=== PATIENT | male | born 1960 | race Caucasian/White ===

== ENCOUNTER → 2021-03-07 | Emergency (ER) | payer SELFPAY ==
[~2021-03-07] VITALS: Ht 177.8 cm; Wt 100.0 kg
[~2021-03-07] MED LIST: HYDR-3965 PO; HYDROcodone/acetaminophen 5mg/325mg tablet PO ONE
[2021-03-07 10:51] VITALS: BP_SYST 83
== END | disposition home or self-care (01) ==
LOC: ER 10:34
DX: S92.315A Nondisplaced fracture of first metatarsal bone, left foot, initial encounter for closed fracture (principal); M79.675 Pain in left toe(s); Z88.5 Allergy status to narcotic agent; Z79.899 Other long term (current) drug therapy; X58.XXXA Exposure to other specified factors, initial encounter; Y93.89 Activity, other specified; Y92.89 Other specified places as the place of occurrence of the external cause; Y99.8 Other external cause status
CPT/HCPCS: 73630; 99283

== ENCOUNTER 2021-11-03 13:29 | Emergency (ER) | payer BC ==
[~2021-11-03] VITALS: Ht 175.3 cm; Wt 90.9 kg
[2021-11-03 13:33] VITALS: BP 144/85
== END 2021-11-03 17:11 | disposition home or self-care (01) ==
LOC: ER 13:29
DX: M25.561 Pain in right knee (principal); Z88.5 Allergy status to narcotic agent
CPT/HCPCS: 73564; 99283

== ENCOUNTER 2022-02-15 15:45 | Inpatient (IN) | payer BC ==
[~2022-02-15] VITALS: Ht 175.3 cm; Wt 90.0 kg
[2022-02-15 16:37] LABS: APTT 26 SECONDS (22-32)
[2022-02-15 16:38] LABS: ALANINE AMINOTRANSFERASE 22 U/L (12-78); ALBUMIN 3.8 G/DL (3.4-5.0); ALKALINE PHOSPHATASE 145 IU/L (46-116); ANION GAP 10 (8-16); ASPARTATE AMINO TRANSFERASE 20 U/L (10-37); BILIRUBIN,TOTAL 0.6 MG/DL (0.1-1.0); BLOOD UREA NITROGEN 14 MG/DL (7-18); BUN/CREATININE RATIO 15.7 (5.4-32.0); CALCIUM 8.5 MG/DL (8.5-10.1); CHLORIDE 105 MMOL/L (99-107); CREATININE 0.89 MG/DL (0.60-1.10); GLUCOSE 93 MG/DL (70-104); POTASSIUM 3.9 MMOL/L (3.5-5.1); SODIUM 140 MMOL/L (135-145); TOTAL PROTEIN 7.5 G/DL (6.4-8.2); eGFR 87 ML/MIN
[2022-02-15 16:43] LABS: BASOPHILS % (AUTO) 0.4 % (0-1); EOSINOPHILS # (AUTO) 0.2 X10'3 (0-0.9); EOSINOPHILS % (AUTO) 2.8 % (0-6); HEMATOCRIT 42.3 % (42.0-52.0); HEMOGLOBIN 14.8 g/dl (14.0-17.9); LYMPHOCYTES # (AUTO) 3.2 X10'3 (1.1-4.8); LYMPHOCYTES % (AUTO) 38.5 % (21-51); MEAN CORPUSCULAR HEMOGLOBIN 30.5 PG (27.0-31.0); MEAN CORPUSCULAR VOLUME 87.3 FL (78-98); MEAN PLATELET VOLUME 8.2 FL (7.4-10.4); MONOCYTES # (AUTO) 0.8 X10'3 (0-0.9); MONOCYTES % (AUTO) 9.9 % (2-12); NEUTROPHILS % (AUTO) 48.4 % (42-75); PLATELET COUNT 294 X10'3 (140-440); RED BLOOD COUNT 4.84 X10'6 (4.70-6.10); RED CELL DISTRIBUTION WIDTH 13.5 % (11.5-14.5); WHITE BLOOD COUNT 8.2 X10'3 (4.5-11.0)
[2022-02-15] MEDS ORDERED: aspirin 325mg tablet PO ONE (17:40)
[2022-02-15] MEDS ORDERED: magnesium hydroxide 30ml (MOM) UD suspension PO PRN (17:45)
[2022-02-15] MEDS ORDERED: mag hydrox/Alum hydrox/simeth 30ml oral suspension PO PRN (17:45)
[2022-02-15] MEDS ORDERED: magnesium Cl slow-release 64mg tablet PO PRN (17:45)
[2022-02-15] MEDS ORDERED: magnesium 2GM in 50ml NS 50 ML IV PRN (17:45)
[2022-02-15] MEDS ORDERED: potassium CL 10mEq/100ml bag 100 ML IV PRN (17:45)
[2022-02-15] MEDS ORDERED: POTASSIUM BICARB 20meq eff tab 20 MEQ TABLET.EFF PO PRN ×2 (17:45)
[2022-02-15] MEDS ORDERED: acetaminophen 325mg tablet PO PRN ×2 (17:45)
[2022-02-15] MEDS ORDERED: ondansetron 4mg rapidly disintigrating tab PO PRN (17:45)
[2022-02-15] MEDS ORDERED: PERFLUTREN PROTEIN-A MICROSPHR (Optison) 0.22 MG/ML 3ML VIAL IV ONE (17:45)
[2022-02-15] MEDS ORDERED: HYDROcodone/acetaminophen 5mg/325mg tablet PO PRN (17:45)
[2022-02-15] MEDS ORDERED: ondansetron/PF 4mg/2ml inj IV PRN (17:45)
[2022-02-15] MEDS ORDERED: magnesium 4gm in 100ml NS 100 ML IV PRN (17:45)
[2022-02-15] MEDS ORDERED: HYDROcodone/acetaminophen 10/325mg tab PO PRN (17:45)
[2022-02-15] MEDS ORDERED: bisacodyl 10mg suppository rectal RC PRN (17:45)
[2022-02-15 18:05] LABS: MAGNESIUM 2.2 MG/DL (1.5-2.4)
[2022-02-15] MEDS ORDERED: iohexol 350MG/ML 100ml bottle IV ONE (18:30)
[2022-02-15] MEDS: normal saline 1000ml 1,000 ML IV SCH (19:35)
[2022-02-15] MEDS ORDERED: enoxaparin 40mg/0.4ml syringe SQ SCH (20:00)
[2022-02-15] MEDS ORDERED: temazepam 15mg capsule PO PRN (21:00)
[2022-02-15] MEDS: docusate sod 100mg capsule PO SCH (21:12)
[2022-02-15] MEDS: K and/or MAG REPLACEMENT MC SCH (21:17)
[2022-02-16 02:29] LABS: BASOPHILS % (AUTO) 0.4 % (0-1); EOSINOPHILS # (AUTO) 0.3 X10'3 (0-0.9); EOSINOPHILS % (AUTO) 4.8 % (0-6); HEMATOCRIT 42.1 % (42.0-52.0); HEMOGLOBIN 14.3 g/dl (14.0-17.9); LYMPHOCYTES # (AUTO) 2.7 X10'3 (1.1-4.8); LYMPHOCYTES % (AUTO) 46.3 % (21-51); MEAN CORPUSCULAR HGB CONC 34.1 g/dL (33.0-36.5); MEAN CORPUSCULAR VOLUME 87.9 FL (78-98); MEAN PLATELET VOLUME 8.1 FL (7.4-10.4); MONOCYTES # (AUTO) 0.7 X10'3 (0-0.9); MONOCYTES % (AUTO) 12.1 % (2-12); NEUTROPHILS # (AUTO) 2.1 X10'3 (1.8-7.7); NEUTROPHILS % (AUTO) 36.4 % (42-75); PLATELET COUNT 259 X10'3 (140-440); RED BLOOD COUNT 4.79 X10'6 (4.70-6.10); RED CELL DISTRIBUTION WIDTH 13.5 % (11.5-14.5); WHITE BLOOD COUNT 5.8 X10'3 (4.5-11.0)
[2022-02-16 02:45] LABS: ALANINE AMINOTRANSFERASE 18 U/L (12-78); ALBUMIN 3.4 G/DL (3.4-5.0); ALKALINE PHOSPHATASE 128 IU/L (46-116); ANION GAP 9 (8-16); ASPARTATE AMINO TRANSFERASE 13 U/L (10-37); BILIRUBIN,TOTAL 0.7 MG/DL (0.1-1.0); BLOOD UREA NITROGEN 13 MG/DL (7-18); BUN/CREATININE RATIO 18.6 (5.4-32.0); CALCIUM 8.4 MG/DL (8.5-10.1); CHLORIDE 106 MMOL/L (99-107); CHOLESTEROL 204 MG/DL (0-200); GLUCOSE 94 MG/DL (70-104); HDL CHOLESTEROL 34 MG/DL (35-60); LDL CHOLESTEROL 144 MG/DL (50-100); MAGNESIUM 2.1 MG/DL (1.5-2.4); POTASSIUM 3.6 MMOL/L (3.5-5.1); SODIUM 140 MMOL/L (135-145); TOTAL CARBON DIOXIDE 25.4 MMOL/L (24-32); TOTAL PROTEIN 6.7 G/DL (6.4-8.2); TRIGLYCERIDES 130 MG/DL (20-135); eGFR > 90 ML/MIN
[2022-02-16] MEDS ORDERED: NO HOME MEDS (03:37)
[2022-02-16] MEDS: normal saline 1000ml 1,000 ML IV SCH (03:47)
--- NOTE | 2022-02-16 07:36 | NUR ---
CVOR NURSE AT BEDSIDE.
[2022-02-16] MEDS ORDERED: aspirin 325mg tablet, delayed-release (Ecotrin) PO SCH (08:00)
[2022-02-16] MEDS: K and/or MAG REPLACEMENT MC SCH (09:29)
[2022-02-16] MEDS: docusate sod 100mg capsule PO SCH (09:43)
[2022-02-16] MEDS ORDERED: ASPI-1071 PO (12:32)
[2022-02-16] MEDS ORDERED: ATOR20TA66 PO (12:32)
[2022-02-16] MEDS ORDERED: LISI2.5T14 PO (12:32)
[2022-02-16] MEDS ORDERED: MECL-226 PO (12:32)
[2022-02-16 13:14] VITALS: BP 107/60
== END 2022-02-16 15:00 | disposition home or self-care (01) | DRG 149 ==
LOC: ER 15:46 → ED HOLD 17:50
PROVIDERS: ADMIT Family Medicine; ATTEND Family Medicine
PROC: B3251ZZ Computerized Tomography (CT Scan) of Bilateral Common Carotid Arteries using Low Osmolar Contrast (ICD-10-PCS; principal; 2022-02-15)
PROC: B32G1ZZ Computerized Tomography (CT Scan) of Bilateral Vertebral Arteries using Low Osmolar Contrast (ICD-10-PCS; 2022-02-15)
PROC: B32R1ZZ Computerized Tomography (CT Scan) of Intracranial Arteries using Low Osmolar Contrast (ICD-10-PCS; 2022-02-15)
PROC: B3281ZZ Computerized Tomography (CT Scan) of Bilateral Internal Carotid Arteries using Low Osmolar Contrast (ICD-10-PCS; 2022-02-15)
DX: H81.13 Benign paroxysmal vertigo, bilateral (principal); Z96.652 Presence of left artificial knee joint; M47.892 Other spondylosis, cervical region; Z88.5 Allergy status to narcotic agent; Z82.3 Family history of stroke
CPT/HCPCS: 36415; 70200; 70450; 70496; 70498; 70551; 71045; 80053; 80061; 83036; 83735; 85025; 85610; 85730; 92508; 92616; 93306; 93971; 99291; 99292; G0378; J1650; J7030; Q9967

== ENCOUNTER 2022-04-11 05:05 | Emergency (ER) | payer BC ==
[~2022-04-11] VITALS: Ht 175.3 cm; Wt 95.5 kg
[~2022-04-11 05:05] MED LIST changes: +ASPI-1071 PO; +ATOR20TA66 PO; -HYDR-3965 PO; -HYDROcodone/acetaminophen 5mg/325mg tablet PO ONE; +LISI2.5T14 PO; +MECL-226 PO
[2022-04-11] MEDS ORDERED: morphine 4 MG/ML inj SYRINge IM ONE (07:25)
[2022-04-11] MEDS ORDERED: ketorolac trometh inj. 60 MG/2 ML VIAL IM ONE (07:30)
--- NOTE | 2022-04-11 07:50 | NUR ---
Patient stated that he has an allergy to morphine, stated that allergy is that he is unable to void. Dr. Hart notified, Dr. Hart stated to still administer as prescribed due to this not being a side effects. Patient agreed will monitor for further Side effects.
[2022-04-11] MEDS ORDERED: LIDOcaine 1% 30ml preserv. free vial SQ STA (09:08)
[2022-04-11] MEDS ORDERED: OXYC-145 PO (09:30)
--- NOTE | 2022-04-11 09:45 | NUR ---
CLEARED FOR DISHCARGE AT THIS TIME. ADVISED TO FOLLOW UP WITH PCP AND RETURN IF CONDITION WORSENS. NO OTHER COMPLAINTS OR CONCERNS AT THIS TIME FOLLOWING DISHCARGE TEACHING.
[2022-04-11 09:50] VITALS: BP 137/86
== END 2022-04-11 09:52 | disposition home or self-care (01) ==
LOC: ER 05:06
DX: M46.1 Sacroiliitis, not elsewhere classified (principal); M54.50 Low back pain, unspecified
CPT/HCPCS: 96372; 99284; J1885; J2270

== ENCOUNTER 2022-08-19 16:35 | Inpatient (IN) | payer BC ==
[~2022-08-19] VITALS: Ht 175.3 cm; Wt 96.0 kg
[~2022-08-19 16:35] MED LIST changes: +OXYC-145 PO
[2022-08-19] MEDS ORDERED: fentaNYL/PF 50MCG/1 ML 2ML syringe IV ONE (17:50)
[2022-08-19] MEDS ORDERED: ondansetron/PF 4mg/2ml inj IV ONE (17:50)
[2022-08-19] MEDS ORDERED: morphine 4 MG/ML inj SYRINge IV ONE (19:17)
[2022-08-19] MEDS ORDERED: temazepam 15mg capsule PO PRN (21:00)
[2022-08-19] MEDS ORDERED: magnesium 4gm in 100ml NS 100 ML IV PRN (22:10)
[2022-08-19] MEDS ORDERED: potassium Cl 20 mEq SR tablet PO PRN ×2 (22:10)
[2022-08-19] MEDS ORDERED: magnesium Cl slow-release 64mg tablet PO PRN (22:10)
[2022-08-19] MEDS ORDERED: acetaminophen 325mg tablet PO PRN ×2 (22:10)
[2022-08-19] MEDS ORDERED: ondansetron/PF 4mg/2ml inj IV PRN (22:10)
[2022-08-19] MEDS ORDERED: potassium Cl 40MEQ/1/2NS 520ml 520 ML IV PRN (22:10)
[2022-08-19] MEDS: normal saline 1000ml 1,000 ML IV SCH (22:10)
[2022-08-19 22:50] LABS: BASOPHILS % (AUTO) 0.2 % (0-1); EOSINOPHILS # (AUTO) 0.1 X10'3 (0-0.9); EOSINOPHILS % (AUTO) 0.5 % (0-6); HEMOGLOBIN 13.9 g/dl (14.0-17.9); LYMPHOCYTES # (AUTO) 1.4 X10'3 (1.1-4.8); LYMPHOCYTES % (AUTO) 9.8 % (21-51); MEAN CORPUSCULAR HEMOGLOBIN 30.1 PG (27.0-31.0); MEAN CORPUSCULAR HGB CONC 33.9 g/dL (33.0-36.5); MEAN CORPUSCULAR VOLUME 88.8 FL (78-98); MEAN PLATELET VOLUME 8.2 FL (7.4-10.4); MONOCYTES # (AUTO) 1.8 X10'3 (0-0.9); MONOCYTES % (AUTO) 12.4 % (2-12); NEUTROPHILS # (AUTO) 11.2 X10'3 (1.8-7.7); NEUTROPHILS % (AUTO) 77.1 % (42-75); PLATELET COUNT 310 X10'3 (140-440); RED BLOOD COUNT 4.62 X10'6 (4.70-6.10); RED CELL DISTRIBUTION WIDTH 13.4 % (11.5-14.5); WHITE BLOOD COUNT 14.5 X10'3 (4.5-11.0)
[2022-08-19] MEDS ORDERED: HYDROmorphone/PF 0.2 MG/ML SYRINGE IV PRN (22:50)
[2022-08-19] MEDS ORDERED: morphine 2 MG/ML inj. syringe IV PRN ×2 (22:50)
[2022-08-19] MEDS ORDERED: HYDROcodone/acetaminophen 5mg/325mg tablet PO PRN (22:50)
[2022-08-19 23:02] LABS: ALANINE AMINOTRANSFERASE 31 U/L (12-78); ALBUMIN 3.8 G/DL (3.4-5.0); ALBUMIN/GLOBULIN RATIO 1.3 (1.1-1.5); ALKALINE PHOSPHATASE 112 IU/L (46-116); ANION GAP 11 (8-16); ASPARTATE AMINO TRANSFERASE 23 U/L (10-37); BILIRUBIN,TOTAL 0.7 MG/DL (0.1-1.0); BLOOD UREA NITROGEN 28 MG/DL (7-18); BUN/CREATININE RATIO 31.1 (5.4-32.0); CALCIUM 8.5 MG/DL (8.5-10.1); CHLORIDE 105 MMOL/L (99-107); GLUCOSE 136 MG/DL (70-104); SODIUM 141 MMOL/L (135-145); TOTAL CARBON DIOXIDE 25.2 MMOL/L (24-32); TOTAL PROTEIN 6.8 G/DL (6.4-8.2); eGFR 86 ML/MIN
[2022-08-19] MEDS: HYDROmorphone inj. 0.5 MG/0.5 ML DISP.SYRIN IV PRN (23:51)
--- NOTE | 2022-08-20 01:35 | NUR ---
Received report from Shelby BATEMAN RN. Patient to follow shortly.
[2022-08-20 02:00] VITALS: BP 119/75
[2022-08-20] MEDS: HYDROcodone/acetaminophen 10/325mg tab PO PRN ×4 (02:01→19:29)
--- NOTE | 2022-08-20 02:19 | NUR ---
PAGER ID: [phone] MESSAGE: New patient, Sepideh Carter rm [id number]. Requesting a one time dose now of diluadid as we have to roll and get trousers off. Also, may we have an order for a F/C . Has not voided in 9 hrs and most likely surgery today. Ksenia Navarro [phone] ([phone] character message out of a maximum of [phone]) CLOSE [X]
--- NOTE | 2022-08-20 02:21 | NUR ---
Patient bladder scanned for no urine output since arrival to ER. 541cc in bladder. Patient managed to void 275cc out rosey in color, leaving 266cc.
[2022-08-20] MEDS ORDERED: HYDROmorphone inj. 0.5 MG/0.5 ML DISP.SYRIN IV ONE ×2 (02:30→19:37)
[2022-08-20 06:00] VITALS: BP 111/69
--- NOTE | 2022-08-20 06:05 | NUR ---
received report from misty rider
--- NOTE | 2022-08-20 06:10 | NUR ---
Problems reprioritized. Patient report given, questions answered & plan of care reviewed with Ashley BATISTA.
[2022-08-20 06:44] LABS: BASOPHILS % (AUTO) 0.2 % (0-1); EOSINOPHILS % (AUTO) 0.2 % (0-6); HEMATOCRIT 38.6 % (42.0-52.0); LYMPHOCYTES # (AUTO) 1.4 X10'3 (1.1-4.8); MEAN CORPUSCULAR HGB CONC 33.6 g/dL (33.0-36.5); MEAN CORPUSCULAR VOLUME 89.2 FL (78-98); MEAN PLATELET VOLUME 8.3 FL (7.4-10.4); MONOCYTES # (AUTO) 1.6 X10'3 (0-0.9); MONOCYTES % (AUTO) 13.7 % (2-12); NEUTROPHILS # (AUTO) 8.9 X10'3 (1.8-7.7); NEUTROPHILS % (AUTO) 73.9 % (42-75); PLATELET COUNT 256 X10'3 (140-440); RED BLOOD COUNT 4.32 X10'6 (4.70-6.10); RED CELL DISTRIBUTION WIDTH 13.5 % (11.5-14.5)
[2022-08-20 07:53] LABS: ALANINE AMINOTRANSFERASE 30 U/L (12-78); ALBUMIN 3.3 G/DL (3.4-5.0); ALBUMIN/GLOBULIN RATIO 1.1 (1.1-1.5); ALKALINE PHOSPHATASE 111 IU/L (46-116); ANION GAP 8 (8-16); ASPARTATE AMINO TRANSFERASE 25 U/L (10-37); BILIRUBIN,TOTAL 0.9 MG/DL (0.1-1.0); BLOOD UREA NITROGEN 21 MG/DL (7-18); BUN/CREATININE RATIO 25.3 (5.4-32.0); CALCIUM 8.1 MG/DL (8.5-10.1); CHLORIDE 104 MMOL/L (99-107); CREATININE 0.83 MG/DL (0.60-1.10); GLUCOSE 132 MG/DL (70-104); POTASSIUM 3.9 MMOL/L (3.5-5.1); SODIUM 138 MMOL/L (135-145); TOTAL CARBON DIOXIDE 25.7 MMOL/L (24-32); TOTAL PROTEIN 6.4 G/DL (6.4-8.2); eGFR > 90 ML/MIN
[2022-08-20] MEDS: heparin, porcine 5000 units/ml vial SQ SCH ×2 (07:56→19:38)
[2022-08-20] MEDS: HYDROmorphone inj. 0.5 MG/0.5 ML DISP.SYRIN IV PRN ×3 (08:00→17:21)
[2022-08-20] MEDS: K and/or MAG REPLACEMENT MC SCH ×2 (08:00→20:00)
[2022-08-20 10:00] VITALS: BP 123/69
[2022-08-20] MEDS ORDERED: HYDROmorphone 1 mg/ml syringe IV ONE (10:50)
--- NOTE | 2022-08-20 11:27 | NUR ---
sent a page to orthopedic physician about placing long leg splint
[2022-08-20] MEDS: normal saline 1000ml 1,000 ML IV SCH (12:28)
--- NOTE | 2022-08-20 14:24 | NUR ---
sent another page to orthodontic technician in regards to placing long leg splint on pt
[2022-08-20] MEDS ORDERED: ASPI-1265 PO (14:30)
[2022-08-20] MEDS ORDERED: ATOR20TA66 PO (14:30)
[2022-08-20] MEDS ORDERED: LISI2.5T14 PO (14:31)
[2022-08-20] MEDS ORDERED: MECL-226 PO (14:32)
[2022-08-20 18:00] VITALS: BP 121/72
--- NOTE | 2022-08-20 18:27 | NUR ---
gave report to misty nunez
--- NOTE | 2022-08-20 18:36 | NUR ---
Report Received from Ashley Styles.
--- NOTE | 2022-08-20 19:00 | NUR ---
Call to Nursing Sup re plastic surgery technician phone # for graduate teacher educationshipbuilding draftsperson. They didn't have schedule. Call to ED and Eman was graduate teacher education so called Nursing sup back and received phone # for Eman.
--- NOTE | 2022-08-20 19:45 | NUR ---
Kali on her way in to see pt. She does not have a pager. She has to be called directly.
[2022-08-20 22:00] VITALS: BP 135/75
[2022-08-21] VITALS (29 sets, daily range): BP systolic 123–169; BP diastolic 60–98
[2022-08-21] MEDS: HYDROmorphone inj. 0.5 MG/0.5 ML DISP.SYRIN IV PRN ×4 (00:22→20:38)
[2022-08-21] MEDS: normal saline 1000ml 1,000 ML IV SCH ×2 (04:24→20:37)
[2022-08-21] MEDS: HYDROcodone/acetaminophen 10/325mg tab PO PRN ×3 (06:02→22:53)
[2022-08-21 06:03] LABS: BASOPHILS % (AUTO) 0.3 % (0-1); EOSINOPHILS # (AUTO) 0.9 X10'3 (0-0.9); EOSINOPHILS % (AUTO) 9.6 % (0-6); HEMATOCRIT 36.3 % (42.0-52.0); HEMOGLOBIN 12.2 g/dl (14.0-17.9); LYMPHOCYTES # (AUTO) 1.8 X10'3 (1.1-4.8); LYMPHOCYTES % (AUTO) 18.4 % (21-51); MEAN CORPUSCULAR HEMOGLOBIN 30.2 PG (27.0-31.0); MEAN CORPUSCULAR HGB CONC 33.5 g/dL (33.0-36.5); MEAN CORPUSCULAR VOLUME 90.1 FL (78-98); MEAN PLATELET VOLUME 8.2 FL (7.4-10.4); MONOCYTES # (AUTO) 1.4 X10'3 (0-0.9); MONOCYTES % (AUTO) 14.8 % (2-12); NEUTROPHILS # (AUTO) 5.4 X10'3 (1.8-7.7); NEUTROPHILS % (AUTO) 56.9 % (42-75); PLATELET COUNT 221 X10'3 (140-440); RED BLOOD COUNT 4.03 X10'6 (4.70-6.10); RED CELL DISTRIBUTION WIDTH 13.5 % (11.5-14.5); WHITE BLOOD COUNT 9.5 X10'3 (4.5-11.0)
[2022-08-21 06:17] LABS: ALANINE AMINOTRANSFERASE 22 U/L (12-78); ALBUMIN 2.9 G/DL (3.4-5.0); ALBUMIN/GLOBULIN RATIO 0.9 (1.1-1.5); ALKALINE PHOSPHATASE 87 IU/L (46-116); ANION GAP 9 (8-16); ASPARTATE AMINO TRANSFERASE 15 U/L (10-37); BILIRUBIN,TOTAL 0.6 MG/DL (0.1-1.0); BLOOD UREA NITROGEN 11 MG/DL (7-18); BUN/CREATININE RATIO 14.5 (5.4-32.0); CALCIUM 7.8 MG/DL (8.5-10.1); CHLORIDE 104 MMOL/L (99-107); CREATININE 0.76 MG/DL (0.60-1.10); GLUCOSE 106 MG/DL (70-104); POTASSIUM 3.4 MMOL/L (3.5-5.1); SODIUM 140 MMOL/L (135-145); TOTAL CARBON DIOXIDE 27.3 MMOL/L (24-32); eGFR > 90 ML/MIN
--- NOTE | 2022-08-21 06:26 | NUR ---
Report to Lesley BATISTA.
[2022-08-21] MEDS: aspirin 81mg tab.chew PO SCH (06:28)
[2022-08-21] MEDS: heparin, porcine 5000 units/ml vial SQ SCH ×2 (06:29→20:38)
[2022-08-21] MEDS: K and/or MAG REPLACEMENT MC SCH ×2 (08:00→20:47)
[2022-08-21] MEDS: lisinopril 2.5mg tablet PO SCH (08:00)
--- NOTE | 2022-08-21 08:33 | NUR ---
Sacha conde: Noted pt w/ amaya of 12 though no wounds per documentation. Pt planning to go to OR for tibial fracture per EMR. Addendum: 08/21/22 at [address] Amended: Links added.
[2022-08-21] MEDS ORDERED: BUPIVAcaine 0.5% inj/PF 0 ML ONE (13:52)
[2022-08-21] MEDS ORDERED: morphine 4 MG/ML inj SYRINge IV PRN (14:05)
[2022-08-21] MEDS ORDERED: morphine 2 MG/ML inj. syringe IV PRN (14:05)
[2022-08-21] MEDS ORDERED: ringers solution, lacted 1,000 ML IV SCH (14:05)
[2022-08-21] MEDS ORDERED: ondansetron/PF 4mg/2ml inj IV PRN (14:05)
[2022-08-21] MEDS ORDERED: proCHLORperazine 10 MG/2 ml inj IV PRN (14:05)
[2022-08-21] MEDS ORDERED: meperidine/PF 25mg/ml syringe IV PRN ×2 (14:05)
[2022-08-21] MEDS ORDERED: fentaNYL /PF 50mcg/ml 5ml ampule ONE (14:07)
[2022-08-21] MEDS ORDERED: midazolam 1 mg/ML 2ml injection ONE (14:07)
[2022-08-21] MEDS ORDERED: ceFAZolin 1000mg inj ONE ×2 (14:23)
[2022-08-21] MEDS ORDERED: BUPIVAcaine 0.25% w/Epi /PF 30ml vial ONE (14:30)
[2022-08-21] MEDS ORDERED: BUPIVAcaine 0.25% w/Epi /PF 30ml vial IJ ONE (14:37)
[2022-08-21] MEDS ORDERED: propofol inj 20 ML IV ONE (15:04)
--- NOTE | 2022-08-21 15:08 | NUR ---
Received from OR via BED, accompanied by Anesthesiologist DR CABA and report given by Anesthesiologist AND GROUND INSTRUCTOR BASIC. PT VERY DROWSY, NO S/S OF DISTRESS/DISCOMFORT. RIGHT FEMUR AND TIBIA W/EXTERNAL FIXATION IN PLACE, DRSG AROUND INSERTIONS SITES CDI. FOOT PWD, PUMP STATION OPERATOR 1-2 SECONDS. PULSES INTACT. Addendum: 08/21/22 at 1550 by Zakia Cassidy RN Amended: Links added.
--- NOTE | 2022-08-21 18:29 | NUR ---
Report to Maricruz BATISTA
[2022-08-21] MEDS ORDERED: acetaminophen 1,000mg/100ml IV 100 ML IV ONE (18:30)
[2022-08-21] MEDS: meperidine/PF 25mg/ml syringe IV PRN ×2 (18:49→19:03)
--- NOTE | 2022-08-21 19:18 | NUR ---
Report called to receiving nurse. Transferred via BED TO CT BY SWEET PICKLE MAKER, NO Belongings, PTS UPDATED. PT WILL GO BACK TO SURGICAL FLOOR AFTER CT. Special Issues communicated to receiving nurse. YES. Addendum: 08/21/22 at 2011 by Zakia Cassidy RN Amended: Links added.
--- NOTE | 2022-08-21 19:43 | NUR ---
Pt arrived fro RR in hospital bed after CT of surgical leg.
[2022-08-21] MEDS ORDERED: enoxaparin 40mg/0.4ml syringe SUBCUT SCH (20:00)
[2022-08-22] MEDS: HYDROmorphone inj. 0.5 MG/0.5 ML DISP.SYRIN IV PRN ×4 (01:49→16:19)
[2022-08-22 02:28] VITALS: BP 124/71
[2022-08-22] MEDS: HYDROcodone/acetaminophen 10/325mg tab PO PRN ×2 (05:16→09:03)
[2022-08-22] MEDS ORDERED: bisacodyl 10mg suppository rectal RC ONE (05:30)
[2022-08-22 06:00] VITALS: BP 145/81
--- NOTE | 2022-08-22 06:21 | NUR ---
Report to Lesley BATISTA.
[2022-08-22 07:03] LABS: BASOPHILS % (AUTO) 0.3 % (0-1); EOSINOPHILS # (AUTO) 0.8 X10'3 (0-0.9); EOSINOPHILS % (AUTO) 6.9 % (0-6); HEMATOCRIT 35.7 % (42.0-52.0); LYMPHOCYTES # (AUTO) 1.6 X10'3 (1.1-4.8); LYMPHOCYTES % (AUTO) 13.2 % (21-51); MEAN CORPUSCULAR HEMOGLOBIN 30.3 PG (27.0-31.0); MEAN CORPUSCULAR HGB CONC 33.6 g/dL (33.0-36.5); MEAN PLATELET VOLUME 8.1 FL (7.4-10.4); MONOCYTES # (AUTO) 1.7 X10'3 (0-0.9); MONOCYTES % (AUTO) 14.4 % (2-12); NEUTROPHILS # (AUTO) 7.7 X10'3 (1.8-7.7); NEUTROPHILS % (AUTO) 65.2 % (42-75); PLATELET COUNT 200 X10'3 (140-440); RED BLOOD COUNT 3.97 X10'6 (4.70-6.10); RED CELL DISTRIBUTION WIDTH 13.5 % (11.5-14.5); WHITE BLOOD COUNT 11.8 X10'3 (4.5-11.0)
[2022-08-22 07:37] LABS: ALANINE AMINOTRANSFERASE 18 U/L (12-78); ALBUMIN 2.7 G/DL (3.4-5.0); ALBUMIN/GLOBULIN RATIO 0.8 (1.1-1.5); ALKALINE PHOSPHATASE 79 IU/L (46-116); ANION GAP 6 (8-16); ASPARTATE AMINO TRANSFERASE 19 U/L (10-37); BILIRUBIN,TOTAL 0.7 MG/DL (0.1-1.0); BLOOD UREA NITROGEN 7 MG/DL (7-18); BUN/CREATININE RATIO 9.7 (5.4-32.0); CALCIUM 7.9 MG/DL (8.5-10.1); CHLORIDE 102 MMOL/L (99-107); CREATININE 0.72 MG/DL (0.60-1.10); GLUCOSE 107 MG/DL (70-104); POTASSIUM 3.5 MMOL/L (3.5-5.1); SODIUM 135 MMOL/L (135-145); TOTAL CARBON DIOXIDE 27.2 MMOL/L (24-32); TOTAL PROTEIN 6.1 G/DL (6.4-8.2); eGFR > 90 ML/MIN
[2022-08-22] MEDS: lisinopril 2.5mg tablet PO SCH (07:39)
[2022-08-22] MEDS: aspirin 81mg tab.chew PO SCH (07:41)
[2022-08-22] MEDS: heparin, porcine 5000 units/ml vial SQ SCH ×2 (07:42→20:36)
[2022-08-22] MEDS: K and/or MAG REPLACEMENT MC SCH ×2 (08:00→20:00)
[2022-08-22] MEDS ORDERED: oxyCODONE IR 5mg (immed. release) tablet PO PRN (10:40)
[2022-08-22] MEDS: normal saline 1000ml 1,000 ML IV SCH ×2 (10:56→21:46)
[2022-08-22] MEDS: oxyCODONE IR 5mg (immed. release) tablet PO PRN ×2 (12:56→21:45)
[2022-08-22] MEDS: ketorolac tromethamine 15mg/ml inj. IV SCH ×2 (16:00→20:37)
[2022-08-22 18:00] VITALS: BP 109/66
--- NOTE | 2022-08-22 18:20 | NUR ---
Patient in room ADAM 357. I have received report from LYNNE Sutton and had the opportunity to ask questions and assume patient care.
[2022-08-22 22:00] VITALS: BP 118/70
[2022-08-23] MEDS: ketorolac tromethamine 15mg/ml inj. IV SCH ×2 (02:05→08:42)
[2022-08-23] MEDS: oxyCODONE IR 5mg (immed. release) tablet PO PRN ×3 (05:52→19:55)
[2022-08-23 06:00] VITALS: BP 122/75
--- NOTE | 2022-08-23 06:17 | NUR ---
Problems reprioritized. Patient report given, questions answered & plan of care reviewed with LYNNE Sutton.
[2022-08-23 06:57] LABS: BASOPHILS % (AUTO) 0.2 % (0-1); EOSINOPHILS # (AUTO) 0.7 X10'3 (0-0.9); EOSINOPHILS % (AUTO) 8.4 % (0-6); HEMOGLOBIN 11.4 g/dl (14.0-17.9); LYMPHOCYTES # (AUTO) 1.6 X10'3 (1.1-4.8); LYMPHOCYTES % (AUTO) 19.3 % (21-51); MEAN CORPUSCULAR HEMOGLOBIN 30.2 PG (27.0-31.0); MEAN CORPUSCULAR HGB CONC 33.4 g/dL (33.0-36.5); MEAN CORPUSCULAR VOLUME 90.5 FL (78-98); MONOCYTES # (AUTO) 1.5 X10'3 (0-0.9); MONOCYTES % (AUTO) 17.9 % (2-12); NEUTROPHILS # (AUTO) 4.6 X10'3 (1.8-7.7); NEUTROPHILS % (AUTO) 54.2 % (42-75); PLATELET COUNT 208 X10'3 (140-440); RED BLOOD COUNT 3.76 X10'6 (4.70-6.10); RED CELL DISTRIBUTION WIDTH 13.5 % (11.5-14.5); WHITE BLOOD COUNT 8.5 X10'3 (4.5-11.0)
[2022-08-23 07:08] LABS: ALANINE AMINOTRANSFERASE 16 U/L (12-78); ALBUMIN 2.4 G/DL (3.4-5.0); ALBUMIN/GLOBULIN RATIO 0.7 (1.1-1.5); ALKALINE PHOSPHATASE 79 IU/L (46-116); ANION GAP 9 (8-16); ASPARTATE AMINO TRANSFERASE 13 U/L (10-37); BILIRUBIN,TOTAL 0.6 MG/DL (0.1-1.0); BLOOD UREA NITROGEN 9 MG/DL (7-18); BUN/CREATININE RATIO 13.2 (5.4-32.0); CALCIUM 8.1 MG/DL (8.5-10.1); CHLORIDE 105 MMOL/L (99-107); CREATININE 0.68 MG/DL (0.60-1.10); GLUCOSE 99 MG/DL (70-104); POTASSIUM 3.7 MMOL/L (3.5-5.1); SODIUM 141 MMOL/L (135-145); TOTAL CARBON DIOXIDE 27.5 MMOL/L (24-32); TOTAL PROTEIN 5.7 G/DL (6.4-8.2); eGFR > 90 ML/MIN
[2022-08-23 07:21] LABS: TOTAL CELLS COUNTED 100
[2022-08-23 07:22] LABS: PLATELET ESTIMATE NORMAL
[2022-08-23] MEDS: K and/or MAG REPLACEMENT MC SCH ×2 (08:00→19:32)
[2022-08-23] MEDS: aspirin 81mg tab.chew PO SCH (08:42)
[2022-08-23] MEDS: lisinopril 2.5mg tablet PO SCH (08:43)
[2022-08-23] MEDS: heparin, porcine 5000 units/ml vial SQ SCH (08:51)
[2022-08-23 10:00] VITALS: BP 116/63
[2022-08-23] MEDS: normal saline 1000ml 1,000 ML IV SCH (11:58)
--- NOTE | 2022-08-23 13:52 | NUR ---
WOUND INFECTION EDUCATION PROVIDED BY WOUND CARE 1. Patient instructed to call their primary doctor, or go the ED immediately if any of the following symptoms occur: * Increased pain in wound * Increase in drainage from the wound * Redness in the skin surrounding the wound * Warmth in the skin surrounding the wound * Bleeding from the wound * Temperature of 101 or greater 2. If any of these occur while in the hospital tell a nurse immediately. Addendum: 08/23/22 at 1353 by Shahnaz Vargas LVN Amended: Links added.
[2022-08-23] MEDS ORDERED: ROPIVAcaine 0.2% (10 MG/5 ML) BOLUS INJECTION POPLITEAL PRN (16:40)
--- NOTE | 2022-08-23 18:00 | NUR ---
Received to room 357B from recovery post On Q placement. set at 4ml/hr states pain is 3
--- NOTE | 2022-08-23 18:38 | NUR ---
Patient in room ADAM 357. I have received report from LYNNE Sutton and had the opportunity to ask questions and assume patient care.
[2022-08-23] MEDS: ROPIVAcaine 0.2%/PF PUMP/bolus 545 ML POPLITEAL SCH (19:34)
[2022-08-23] MEDS: docusate sod 100mg capsule PO SCH (19:44)
[2022-08-23] MEDS: enoxaparin 30mg/0.3ml syringe SUBCUT SCH (19:45)
[2022-08-23 22:00] VITALS: BP 115/63
[2022-08-24] MEDS: oxyCODONE IR 5mg (immed. release) tablet PO PRN ×2 (01:51→05:45)
[2022-08-24 06:08] LABS: BASOPHILS % (AUTO) 0.4 % (0-1); EOSINOPHILS # (AUTO) 0.9 X10'3 (0-0.9); EOSINOPHILS % (AUTO) 10.1 % (0-6); HEMATOCRIT 36.5 % (42.0-52.0); LYMPHOCYTES # (AUTO) 2.2 X10'3 (1.1-4.8); MEAN CORPUSCULAR HEMOGLOBIN 29.8 PG (27.0-31.0); MEAN CORPUSCULAR HGB CONC 32.9 g/dL (33.0-36.5); MEAN CORPUSCULAR VOLUME 90.6 FL (78-98); MEAN PLATELET VOLUME 7.8 FL (7.4-10.4); MONOCYTES # (AUTO) 1.5 X10'3 (0-0.9); MONOCYTES % (AUTO) 17.5 % (2-12); NEUTROPHILS # (AUTO) 4.1 X10'3 (1.8-7.7); PLATELET COUNT 261 X10'3 (140-440); RED BLOOD COUNT 4.03 X10'6 (4.70-6.10); RED CELL DISTRIBUTION WIDTH 13.3 % (11.5-14.5); WHITE BLOOD COUNT 8.8 X10'3 (4.5-11.0)
[2022-08-24 06:29] VITALS: BP 126/73
--- NOTE | 2022-08-24 06:37 | NUR ---
Problems reprioritized. Patient report given, questions answered & plan of care reviewed with LYNNE Shirley.
[2022-08-24 07:27] LABS: ALANINE AMINOTRANSFERASE 22 U/L (12-78); ALBUMIN 2.7 G/DL (3.4-5.0); ALBUMIN/GLOBULIN RATIO 0.7 (1.1-1.5); ALKALINE PHOSPHATASE 95 IU/L (46-116); ANION GAP 14 (8-16); ASPARTATE AMINO TRANSFERASE 16 U/L (10-37); BILIRUBIN,TOTAL 0.6 MG/DL (0.1-1.0); BLOOD UREA NITROGEN 10 MG/DL (7-18); BUN/CREATININE RATIO 12.2 (5.4-32.0); CALCIUM 8.7 MG/DL (8.5-10.1); CHLORIDE 105 MMOL/L (99-107); CREATININE 0.82 MG/DL (0.60-1.10); GLUCOSE 101 MG/DL (70-104); POTASSIUM 3.8 MMOL/L (3.5-5.1); SODIUM 146 MMOL/L (135-145); TOTAL CARBON DIOXIDE 27.3 MMOL/L (24-32); TOTAL PROTEIN 6.6 G/DL (6.4-8.2); eGFR > 90 ML/MIN
[2022-08-24] MEDS: docusate sod 100mg capsule PO SCH ×2 (07:50→20:24)
[2022-08-24] MEDS: aspirin 81mg tab.chew PO SCH (07:50)
[2022-08-24] MEDS: lisinopril 2.5mg tablet PO SCH (07:53)
[2022-08-24] MEDS: HYDROcodone/acetaminophen 10/325mg tab PO PRN ×3 (07:58→20:26)
[2022-08-24] MEDS: K and/or MAG REPLACEMENT MC SCH ×2 (08:00→20:00)
[2022-08-24 10:56] VITALS: BP 128/75
--- NOTE | 2022-08-24 14:22 | NUR ---
Initial: Pt admit DX R tibia fx from fall s/p OR for fx repair this admit per EMR. PO fluctuating ~63% avg meals up to 75% most recent overall partially meeting estimated needs. Pt seen by RD at bedside for written/verbal high protein diet ed w/ RD contact information provided. Pt reports enjoys food no food preferences though feeling constipated only BM 08/22 once since admit 5 days impacting PO intake. Noted receiving routine colace per EMR. Pt is agreeable to prune juice once WS to assist BM; dietary notified. Pt also agreeable to Xavier smoothie BIDLD for wound healing; MD notified. Will monitor for further nutrition intervention needs this admit. Rec: 1. continue regular diet; encourage PO 2. Xavier smoothie BIDLD for wound healing; pending MD verification in EMR 3. routine bowel regimen; pt complaints of constipation 4. scaled wt this admit; subsequent weekly wts Addendum: 08/24/22 at [address] Amended: Links added.
[2022-08-24] MEDS ORDERED: JUVEN Smoothie Arginine/Glut./Ca2+Bmb (Juven 19.3pkt) 240ml cup PO SCH (17:30)
[2022-08-24 18:00] VITALS: BP 145/77
--- NOTE | 2022-08-24 18:25 | NUR ---
Patient in room ADAM 357. I have received report from LYNNE Shirley and had the opportunity to ask questions and assume patient care.
[2022-08-24] MEDS: enoxaparin 30mg/0.3ml syringe SUBCUT SCH (20:24)
[2022-08-24 22:00] VITALS: BP 139/76
[2022-08-25] MEDS: HYDROcodone/acetaminophen 10/325mg tab PO PRN ×3 (01:57→10:07)
[2022-08-25 06:00] VITALS: BP 139/86
--- NOTE | 2022-08-25 06:24 | NUR ---
Problems reprioritized. Patient report given, questions answered & plan of care reviewed with LYNNE Hollins.
--- NOTE | 2022-08-25 06:25 | NUR ---
Patient in room ADAM 357. I have received report from Kika and had the opportunity to ask questions and assume patient care.
[2022-08-25] MEDS: K and/or MAG REPLACEMENT MC SCH ×2 (07:57→20:00)
[2022-08-25] MEDS: lisinopril 2.5mg tablet PO SCH (08:00)
[2022-08-25] MEDS: aspirin 81mg tab.chew PO SCH (08:01)
[2022-08-25] MEDS: docusate sod 100mg capsule PO SCH ×2 (08:01→21:10)
[2022-08-25 10:00] VITALS: BP 111/73
--- NOTE | 2022-08-25 14:59 | NUR ---
Awaiting on wheelchair with leg entrepreneurship program director. Unable to obtain today. Pt may likely stay until Sunday. Still needs home health to be set up.
[2022-08-25] MEDS: oxyCODONE/APAP 10/325mg tablet PO PRN ×2 (15:36→21:08)
[2022-08-25 18:00] VITALS: BP 125/72
--- NOTE | 2022-08-25 18:26 | NUR ---
Problems reprioritized. Patient report given, questions answered & plan of care reviewed with Brianne Machuca
[2022-08-25] MEDS: HYDROmorphone inj. 0.5 MG/0.5 ML DISP.SYRIN IV PRN ×2 (19:16→23:07)
[2022-08-25] MEDS: ROPIVAcaine 0.2%/PF PUMP/bolus 545 ML POPLITEAL SCH (19:21)
[2022-08-25] MEDS: nystatin 15 GM ointment TP SCH (21:00)
[2022-08-25] MEDS: enoxaparin 30mg/0.3ml syringe SUBCUT SCH (21:09)
[2022-08-25 22:00] VITALS: BP 123/79
[2022-08-26] MEDS: oxyCODONE/APAP 10/325mg tablet PO PRN ×6 (01:02→21:20)
[2022-08-26] MEDS: HYDROmorphone inj. 0.5 MG/0.5 ML DISP.SYRIN IV PRN (03:14)
[2022-08-26 06:00] VITALS: BP 131/80
--- NOTE | 2022-08-26 06:24 | NUR ---
Problems reprioritized. Patient report given, questions answered & plan of care reviewed with Rafael Hollins
--- NOTE | 2022-08-26 06:34 | NUR ---
Patient in room ADAM 357. I have received report from Brianne Olvera and had the opportunity to ask questions and assume patient care.
[2022-08-26] MEDS: lisinopril 2.5mg tablet PO SCH (08:00)
[2022-08-26] MEDS: K and/or MAG REPLACEMENT MC SCH ×2 (08:00→20:00)
[2022-08-26] MEDS: aspirin 81mg tab.chew PO SCH (08:19)
[2022-08-26] MEDS: docusate sod 100mg capsule PO SCH ×2 (08:19→20:06)
[2022-08-26] MEDS: atorvastatin 20mg tablet PO SCH (08:19)
[2022-08-26] MEDS: nystatin 15 GM ointment TP SCH ×3 (08:21→20:13)
[2022-08-26 10:00] VITALS: BP 121/99
[2022-08-26 18:00] VITALS: BP 136/82
--- NOTE | 2022-08-26 18:52 | NUR ---
Problems reprioritized. Patient report given, questions answered & plan of care reviewed with Chris.
--- NOTE | 2022-08-26 18:55 | NUR ---
Patient in room ADAM 357. I have received report from CASA Harmon and had the opportunity to ask questions and assume patient care.
[2022-08-26] MEDS: enoxaparin 30mg/0.3ml syringe SUBCUT SCH (20:07)
[2022-08-26 22:00] VITALS: BP 117/68
[2022-08-27] MEDS: oxyCODONE/APAP 10/325mg tablet PO PRN ×5 (02:00→22:44)
[2022-08-27] MEDS: ROPIVAcaine 0.2%/PF PUMP/bolus 545 ML POPLITEAL SCH (05:21)
[2022-08-27 06:00] VITALS: BP 101/80
[2022-08-27 06:17] LABS: BASOPHILS # (AUTO) 0.1 X10'3 (0-0.2); BASOPHILS % (AUTO) 0.8 % (0-1); EOSINOPHILS # (AUTO) 0.7 X10'3 (0-0.9); EOSINOPHILS % (AUTO) 6.2 % (0-6); HEMATOCRIT 35.8 % (42.0-52.0); HEMOGLOBIN 12.3 g/dl (14.0-17.9); LYMPHOCYTES % (AUTO) 18.3 % (21-51); MEAN CORPUSCULAR HEMOGLOBIN 30.5 PG (27.0-31.0); MEAN CORPUSCULAR HGB CONC 34.3 g/dL (33.0-36.5); MEAN CORPUSCULAR VOLUME 89.2 FL (78-98); MEAN PLATELET VOLUME 8.4 FL (7.4-10.4); MONOCYTES # (AUTO) 1.3 X10'3 (0-0.9); MONOCYTES % (AUTO) 11.8 % (2-12); NEUTROPHILS # (AUTO) 6.8 X10'3 (1.8-7.7); NEUTROPHILS % (AUTO) 62.9 % (42-75); PLATELET COUNT 362 X10'3 (140-440); RED BLOOD COUNT 4.02 X10'6 (4.70-6.10); RED CELL DISTRIBUTION WIDTH 13.2 % (11.5-14.5); WHITE BLOOD COUNT 10.8 X10'3 (4.5-11.0)
--- NOTE | 2022-08-27 06:25 | NUR ---
Problems reprioritized. Patient report given, questions answered & plan of care reviewed with CASA Harmon RN.
--- NOTE | 2022-08-27 06:27 | NUR ---
Patient in room ADAM 357. I have received report from Chris and had the opportunity to ask questions and assume patient care.
[2022-08-27 06:30] LABS: ALANINE AMINOTRANSFERASE 61 U/L (12-78); ALBUMIN 2.6 G/DL (3.4-5.0); ALBUMIN/GLOBULIN RATIO 0.6 (1.1-1.5); ALKALINE PHOSPHATASE 262 IU/L (46-116); ANION GAP 12 (8-16); ASPARTATE AMINO TRANSFERASE 42 U/L (10-37); BILIRUBIN,TOTAL 0.7 MG/DL (0.1-1.0); BLOOD UREA NITROGEN 11 MG/DL (7-18); BUN/CREATININE RATIO 13.4 (5.4-32.0); CALCIUM 8.9 MG/DL (8.5-10.1); CHLORIDE 101 MMOL/L (99-107); CREATININE 0.82 MG/DL (0.60-1.10); GLUCOSE 129 MG/DL (70-104); POTASSIUM 3.5 MMOL/L (3.5-5.1); SODIUM 137 MMOL/L (135-145); TOTAL CARBON DIOXIDE 24.5 MMOL/L (24-32); eGFR > 90 ML/MIN
[2022-08-27] MEDS: K and/or MAG REPLACEMENT MC SCH ×2 (07:52→19:59)
[2022-08-27] MEDS: lisinopril 2.5mg tablet PO SCH (07:54)
[2022-08-27] MEDS: aspirin 81mg tab.chew PO SCH (07:55)
[2022-08-27] MEDS: atorvastatin 20mg tablet PO SCH (07:55)
[2022-08-27] MEDS: docusate sod 100mg capsule PO SCH ×2 (07:55→20:12)
[2022-08-27] MEDS: nystatin 15 GM ointment TP SCH ×3 (07:56→20:10)
[2022-08-27 10:00] VITALS: BP 127/85
[2022-08-27] MEDS ORDERED: magnesium hydroxide 30ml (MOM) UD suspension PO PRN (11:30)
--- NOTE | 2022-08-27 18:19 | NUR ---
Problems reprioritized. Patient report given, questions answered & plan of care reviewed with
[2022-08-27 18:30] VITALS: BP 136/82
[2022-08-27] MEDS: enoxaparin 30mg/0.3ml syringe SUBCUT SCH (20:12)
[2022-08-27 22:00] VITALS: BP 120/64
[2022-08-28] MEDS: oxyCODONE/APAP 10/325mg tablet PO PRN ×3 (03:07→14:13)
[2022-08-28 06:00] VITALS: BP 141/88
--- NOTE | 2022-08-28 06:37 | NUR ---
Problems reprioritized. Patient report given, questions answered & plan of care reviewed with Lesley. Addendum: 08/28/22 at 0637 by Manan Adam RN Amended: Links added.
[2022-08-28] MEDS: K and/or MAG REPLACEMENT MC SCH (08:00)
[2022-08-28 10:00] VITALS: BP 122/81
[2022-08-28] MEDS: docusate sod 100mg capsule PO SCH (10:05)
[2022-08-28] MEDS: aspirin 81mg tab.chew PO SCH (10:05)
[2022-08-28] MEDS: atorvastatin 20mg tablet PO SCH (10:05)
[2022-08-28 10:08] VITALS: BP_SYST 146
[2022-08-28] MEDS: lisinopril 2.5mg tablet PO SCH (10:08)
[2022-08-28] MEDS ORDERED: OXYC-150 PO (12:55)
[2022-08-28] MEDS ORDERED: ASPI-1264 PO (12:55)
--- NOTE | 2022-08-28 14:25 | NUR ---
PRESSURE ULCER EDUCATION: DEFINITION: A pressure ulcer is an area of skin that breaks down when you stay in one position too long. The constant pressure against the skin reduces the blood flow to that area and the affected tissue dies. CAUSES: "Being bedridden or in a wheelchair "Fragile skin "Having a chronic condition, such as diabetes or vascular disease "Inability to move certain parts of your body without assistance "Older age "Incontinence of urine or stool SYMPTOMS: "A reddened area that DOES NOT turn white when pressed on - this can be the beginning of a pressure ulcer "A blister, deep sore or a crater - these can be advanced pressure ulcers FIRST AID: "Relieve the pressure on this area "Keep the area clean and dry "Call your primary doctor if you see any of the above symptoms "DO NOT massage the area "DO NOT use a donut shaped or ring shaped pillow- these actually interfere with the blood flow and cause complications PREVENTION: "Check for pressure ulcers everyday "Change position at least every two hours to relieve pressure "Use items that help relieve pressure- pillows, sheepskin, foam padding, and powders. "Keep skin clean and dry "Eat healthy well balanced meals "Exercise daily IF YOU SEE ANY OF THESE SYMPTOMS WHILE IN THE HOSPITAL - TELL YOUR NURSE IMMEDIATELY. IF YOU SEE ANY OF THESE SYMPTOMS WHILE AT HOME OR HAVE ANY QUESTIONS OR CONCERNS ABOUT PRESSURE ULCERS - CALL YOUR PRIMARY DOCTOR IMMEDIATELY. Addendum: 08/28/22 at 1425 by Shahnaz Vargas LVN Amended: Links added.
--- NOTE | 2022-08-28 17:38 | NUR ---
Call to Marisol Cargo, no answer and voicemail is full.
[2022-08-28] MEDS: ROPIVAcaine 0.2%/PF PUMP/bolus 545 ML POPLITEAL SCH (17:56)
== END 2022-08-28 18:04 | disposition home health service (06) | DRG 494 ==
LOC: ER 16:35 → ED HOLD 22:16 → EDBEDREQ 08-20 01:06 → SUR 3N 08-20 01:50
PROVIDERS: ADMIT Internal Medicine; ATTEND Internal Medicine
PROC: 3E0T3BZ Introduction of Anesthetic Agent into Peripheral Nerves and Plexi, Percutaneous Approach (ICD-10-PCS; 2022-08-21)
PROC: 3E0T33Z Introduction of Anti-inflammatory into Peripheral Nerves and Plexi, Percutaneous Approach (ICD-10-PCS; 2022-08-21)
PROC: 0QSG35Z Reposition Right Tibia with External Fixation Device, Percutaneous Approach (ICD-10-PCS; principal; 2022-08-21 14:09)
DX: S82.141A Displaced bicondylar fracture of right tibia, initial encounter for closed fracture (principal); E78.5 Hyperlipidemia, unspecified; E66.9 Obesity, unspecified; M54.2 Cervicalgia; W11.XXXA Fall on and from ladder, initial encounter; Z96.652 Presence of left artificial knee joint; Z86.73 Personal history of transient ischemic attack (TIA), and cerebral infarction without residual deficits; Z68.31 Body mass index [BMI] 31.0-31.9, adult; Y93.89 Activity, other specified; Y92.89 Other specified places as the place of occurrence of the external cause; Y99.8 Other external cause status; Z88.5 Allergy status to narcotic agent; Z79.899 Other long term (current) drug therapy; Z79.82 Long term (current) use of aspirin
CPT/HCPCS: 96374; 96375; 99285; Z7506; 36415; 70450; 72125; 72128; 72131; 73030; 73100; 73560; 73590; 73600; 73700; 76000; 80053; 85007; 85025; 85610; 87081; 93005; 97110; 97116; 97162; 97530; 97535; 97542; A4615; A4618; A6446; A6449; G0378; J0131; J0690; J1170; J1644; J1650; J1885; J2175; J2250; J2270; J2405; J2704; J2795; J3010; J7030; J7120; S0020

== ENCOUNTER 2023-01-05 10:19 | Emergency (ER) | payer BC ==
[~2023-01-05] VITALS: Ht 175.3 cm; Wt 92.0 kg
[~2023-01-05 10:19] MED LIST changes: -ASPI-1071 PO; -OXYC-145 PO; +OXYC-150 PO
[2023-01-05 10:28] VITALS: BP 132/87
--- NOTE | 2023-01-05 10:41 | NUR ---
Pt in FTC. Pt c/o 910 pain in his L hip that is a constant stabbing sharp pain. No injury noted. Pt educated to POC. Pt in agreement. Pending providers eval and treatment.
[2023-01-05] MEDS ORDERED: morphine 4 MG/ML inj SYRINge IM ONE (11:10)
[2023-01-05] MEDS ORDERED: HYDR-3973 PO (11:13)
== END 2023-01-05 11:23 | disposition home or self-care (01) ==
LOC: ER 10:20
DX: M51.36 Other intervertebral disc degeneration, lumbar region (principal); M54.59 Other low back pain; Z79.899 Other long term (current) drug therapy; Z79.1 Long term (current) use of non-steroidal anti-inflammatories (NSAID); Z79.2 Long term (current) use of antibiotics
CPT/HCPCS: 96372; 99284; J2270

== ENCOUNTER 2024-08-22 11:02 | Emergency (ER) | payer BC, SELFPAY ==
[~2024-08-22] VITALS: Ht 175.3 cm; Wt 94.0 kg
[2024-08-22 12:52] VITALS: BP 133/79; PULSE 82; TEMP 98.2; O2SAT 95
[2024-08-22] MEDS ORDERED: PRED20TA PO (13:55)
[2024-08-22] MEDS: ketorolac trometh 30MG/ML vial 30 MG/ML VIAL IM ONE (14:01)
[2024-08-22 14:02] VITALS: RESP 16
[2024-08-22] MEDS: ketorolac trometh 15mg/ml vial 15 MG/ML ML IM ONE (14:02)
== END 2024-08-22 14:17 | disposition home or self-care (01) ==
LOC: ER 11:02
DX: R51.9 Headache, unspecified (principal); Z79.899 Other long term (current) drug therapy
CPT/HCPCS: 96372; 99283; J1885